=== PATIENT | male | born 1980 | race Caucasian/White ===

== ENCOUNTER 2017-10-04 10:12 | Outpatient (CLI) | payer OTHER ==
--- NOTE | 2017-10-04 10:51 | RAD ---
THREE VIEWS OF THE LEFT HAND: DATE: 10/04/17. COMPARISON: None. HISTORY: Crush injury of the index and middle finger, pain. FINDINGS: No acute fracture or evidence of dislocation. No radiopaque foreign body or subcutaneous gas. IMPRESSION: No acute fracture or evidence of dislocation seen. POS: [facility]
== END 2017-10-04 10:13 | disposition home or self-care (01) ==
LOC: SCSRAD 10:12
PROVIDERS: ATTEND Nurse Practitioner Family
DX: S67.22XA Crushing injury of left hand, initial encounter (principal)